=== PATIENT | female | born 1985 | race Two or more races ===

== ENCOUNTER 2017-02-24 22:47 | Emergency (ER) | payer OTHER ==
[~2017-02-24] VITALS: Ht 152.4 cm; Wt 65.0 kg
[2017-02-24 22:50] VITALS: BP 145/87
[2017-02-24] MEDS ORDERED: ACETAMINOPHEN 500 MG TABLET ONE (23:06)
[2017-02-24] MEDS ORDERED: ACETAMINOPHEN 500 MG TABLET PO ONE (23:30)
== END 2017-02-24 23:53 | disposition home or self-care (01) ==
LOC: ED 23:45
DX: S09.90XA Unspecified injury of head, initial encounter (principal); G44.319 Acute post-traumatic headache, not intractable; V49.49XA Driver injured in collision with other motor vehicles in traffic accident, initial encounter; Y93.89 Activity, other specified; Y92.488 Other paved roadways as the place of occurrence of the external cause; Y99.8 Other external cause status
CPT/HCPCS: 70450; 99284